=== PATIENT | female | born 1970 | race Caucasian/White ===

== ENCOUNTER 2017-01-02 10:25 | Emergency (ER) | payer BC ==
[2017-01-02] MEDS ORDERED: Sodium Chloride 0.9% 1,000 ML IV ONE ×2 (10:52→12:50)
[2017-01-02] MEDS ORDERED: Ketorolac 30 MG/ML SDV IVPUSH ONE (10:52)
--- NOTE | 2017-01-02 11:18 | EDM.PDOC ---
<Jose Elias Alejandre - Last Filed: 01/02/17 13:54> ED HPI GI/ABDOMINAL - General Chief Complaint: Abdominal Pain Stated Complaint: ABD PAIN Time Seen by Provider: 01/02/17 10:40 Source of Information: Reports: Patient History Limitations: Reports: No limitations - History of Present Illness INITIAL COMMENTS - FREE TEXT/NARRATIVE: History of present illness: [46-year-old female coming in presenting with complaints of acute abdominal pain. Patient was seen Tuesday with her primary care provider who was addressing the same pain and subsequently was worked up on a limited basis with no ability to differentiate or identify what the actual pains Paulette was. Patient is a chronic pain management patient has a contract in place. Dialogue about contract and patient verbalized understanding of plan of care in her and is here for identification of reason for pain.] Review of systems: As per history of present illness and below otherwise all systems reviewed and negative. Past medical history: As per history of present illness and as reviewed below otherwise noncontributory. Surgical history: As per history of present illness and as reviewed below otherwise noncontributory. Social history: No reported history of drug or alcohol abuse. Family history: As per history of present illness and as reviewed below otherwise noncontributory. Physical exam: HEENT: Atraumatic, normocephalic, pupils reactive, negative for conjunctival pallor or scleral icterus, mucous membranes moist, throat clear, neck supple, nontender, trachea midline. Lungs: Clear to auscultation, breath sounds equal bilaterally, chest nontender. Heart: S1S2, regular, negative for clicks, rubs, or JVD. Abdomen: Soft, nondistended, diffuse tenderness left upper quadrant greater than right radiating down into the pelvic region. Negative for masses or hepatosplenomegaly. Negative for costovertebral tenderness. Pelvis: Stable nontender. Genitourinary: Deferred. Rectal: Deferred. Extremities: Atraumatic, negative for cords or calf pain. Neurovascular unremarkable. Neuro: Awake, alert, oriented. Cranial nerves II through XII unremarkable. Cerebellum unremarkable. Motor and sensory unremarkable throughout. Exam nonfocal. Diagnostics: [CBC, CMP] Therapeutics: [IV, Toradol] Impression: [] Plan: [] Definitive disposition and diagnosis as appropriate pending reevaluation and review of above. - Related Data Allergies/ADRs: Allergies Allergy/AdvReac Type Severity Reaction Status Date / Time latex Allergy Rash Verified 01/02/17 10:46 Sulfa (Sulfonamide Allergy Anaphylactic Verified 01/02/17 10:46 Antibiotics) Shock Home Meds: Home Meds Aspirin 81 mg CHEW DAILY 10/12/16 [History] Carisoprodol [Soma] 350 mg PO DAILY PRN 10/12/16 [History] DULoxetine [Cymbalta] 60 mg PO DAILY 10/12/16 [History] Estradiol [Estrace] 2 mg PO DAILY 10/12/16 [History] Gabapentin [Neurontin] 300 mg PO TID 10/12/16 [History] Hydrochlorothiazide 25 mg PO DAILY 10/12/16 [History] Levothyroxine Sodium 150 mcg PO DAILY 10/12/16 [History] Acetaminophen/HYDROcodone [[place] 325-5 MG] 1 tab PO Q4H PRN #30 tablet 10/15/16 [Rx] Meloxicam [Mobic] 15 mg PO DAILY 01/02/17 [History] Ondansetron HCl [Zofran] 8 mg PO TID #24 tablet 01/02/17 [Rx] Past Medical History HEENT History: Reports: None Cardiovascular History: Reports: Hypertension Respiratory History: Reports: None Genitourinary History: Reports: None STRIPER History: Reports: Musculoskeletal History: Reports: Back pain, chronic, Fibromyalgia, Osteoarthritis Other Musculoskeletal History: chronic pain syndrome, Neurological History: Reports: TIA Psychiatric History: Reports: Anxiety, Depression Endocrine/Metabolic History: Reports: Hypothyroidism Other Endocrine/Metabolic History: hx radiation to thyroid Hematologic History: Reports: Blood transfusion(s) Immunologic History: Reports: None Oncologic (Cancer) History: Reports: None Dermatologic History: Reports: None - Infectious Disease History Infectious Disease History: Reports: None - Past Surgical History Head Surgeries/Procedures: Reports: None HEENT Surgical History: Reports: Tonsillectomy Cardiovascular Surgical History: Reports: None GI Surgical History: Reports: Appendectomy, Cholecystectomy Female Surgical History: Reports: Breast implant, Hysterectomy Other Female Surgeries/Procedures: hx breast augmentation, hx laparoscopy with lysis of adhesions Social & Family History - Family History Family Medical History: Noncontributory - Tobacco Use Smoking Status *Q: Current Every Day Smoker Years of Tobacco use: 20 Packs/Tins Daily: 0.3 Month Tobacco Last Used: smokes 1 pack of cigarettes every 3 to 4 days - Caffeine Use Caffeine Use: Reports: None - Recreational Drug Use Recreational Drug Use: No ED ROS GENERAL - Review of Systems Review Of Systems: See Below (The history of present illness) ED EXAM, GI/ABD - Physical Exam Exam: See Below (See history of present illness) Course - Vital Signs Last Recorded V/S: Last Vital Signs Temp 35.6 C 01/02/17 10:43 Pulse 78 01/02/17 10:43 Resp 16 01/02/17 14:08 BP 124/75 01/02/17 14:08 Pulse Ox 97 01/02/17 14:08 - Orders/Labs/Meds Orders: Active Orders 24 hr Category Date Time Status Abdomen Pelvis w Cont [CT] Stat Exams 01/02/17 11:36 Taken Labs: Laboratory Tests 01/02/17 01/02/17 01/02/17 Range/Units 11:05 11:05 11:05 WBC 11.53 H (4.0-11.0) K/uL RBC 4.56 (4.30-5.90) M/uL Hgb 14.4 (12.0-16.0) g/dL Hct 42.5 (36.0-46.0) % MCV 93.2 (80.0-98.0) fL MCH 31.6 (27.0-32.0) pg MCHC 33.9 (31.0-37.0) g/dL RDW Std Deviation 43.7 (28.0-62.0) fl RDW Coeff of Isa 13 (11.0-15.0) % Plt Count 224 (150-400) K/uL MPV 9.40 (7.40-12.00) fL Neut % (Auto) 67.7 (48.0-80.0) % Lymph % (Auto) 26.6 (16.0-40.0) % [place] % (Auto) 4.9 (0.0-15.0) % Eos % (Auto) 0.5 (0.0-7.0) % Baso % (Auto) 0.3 (0.0-1.5) % Neut # 7.8 H (1.4-5.7) K/uL Lymph # 3.1 H (0.6-2.4) K/uL [place] # 0.6 (0.0-0.8) K/uL Eos # 0.1 (0.0-0.7) K/uL Baso # 0.0 (0.0-0.1) K/uL Sodium 141 (136-146) mmol/L Potassium 3.7 (3.5-5.1) mmol/L Chloride 104 (98-110) mmol/L Carbon Dioxide 28 (21-31) mmol/L BUN 10 (6.0-23.0) mg/dL Creatinine 0.8 (0.6-1.5) mg/dL Est Cr Clr Drug Dosing 77.49 mL/min Estimated GFR (MDRD) > 60.0 ml/min Glucose 90 (60-110) mg/dL Calcium 9.4 (8.8-10.8) mg/dL Total Bilirubin 0.5 (0.1-1.5) mg/dL AST 17 (5-40) IU/L ALT 14 (8-54) IU/L Alkaline Phosphatase 59 (40-150) Total Protein 7.1 (6.0-8.0) g/dL Albumin 4.5 (3.5-5.0) g/dL Globulin 2.6 (2.0-3.5) g/dL Albumin/Globulin Ratio 1.7 (1.3-2.8) Amylase 51 (10-90) U/L Lipase 22 (7-80) U/L Meds: Medications Discontinued Medications Generic Name Dose Route Start Last Admin Trade Name Freq PRN Reason Stop Dose Admin Hydromorphone HCl 1 mg 01/02/17 12:50 01/02/17 13:13 Dilaudid IVPUSH 01/02/17 12:51 1 mg ONETIME ONE Administration Sodium Chloride 1,000 mls @ 999 mls/hr 01/02/17 10:52 01/02/17 11:06 Normal Saline IV 01/02/17 11:52 999 mls/hr STAT ONE Administration Sodium Chloride 1,000 mls @ 999 mls/hr 01/02/17 12:50 01/02/17 13:13 Normal Saline IV 01/02/17 13:50 999 mls/hr STAT ONE Administration Iopamidol 100 ml 01/02/17 12:05 01/02/17 12:05 Isovue-370 (76%) IVPUSH 01/02/17 12:06 80 ml ONETIME STA Administration Ketorolac Tromethamine 30 mg 01/02/17 10:52 01/02/17 11:06 Toradol IVPUSH 01/02/17 10:53 30 mg ONETIME ONE Administration Ondansetron HCl 8 mg 01/02/17 12:55 01/02/17 13:13 Zofran IVPUSH 01/02/17 12:56 8 mg ONETIME ONE Administration Departure - Departure Time of Disposition: 13:55 Disposition: Home, Self-Care 01 Condition: good Clinical Impression: Abdominal pain Qualifiers: Abdominal location: unspecified location Qualified Code(s): R10.9 - Unspecified abdominal pain Prescriptions: Ondansetron HCl [Zofran] 8 mg PO TID #24 tablet Instructions: Abdominal Pain, Adult, [id number] Referrals: PCP,None [Primary Care Provider] - Forms: ED Department Discharge Additional Instructions: The following information is given to patients seen in the emergency department who are being discharged to home. This information is to outline your options for follow-up care. We provide all patients seen in our emergency department with a follow-up referral. The need for follow-up, as well as the timing and circumstances, are variable depending upon the specifics of your emergency department visit. If you don't have a primary care physician on staff, we will provide you with a referral. We always advise you to contact your personal physician following an emergency department visit to inform them of the circumstance of the visit and for follow-up with them and/or the need for any referrals to a consulting specialist. The emergency department will also refer you to a specialist when appropriate. This referral assures that you have the opportunity for follow-up care with a specialist. All of these measure are taken in an effort to provide you with optimal care, which includes your follow-up. Under all circumstances we always encourage you to contact your private physician who remains a resource for coordinating your care. When calling for follow-up care, please make the office aware that this follow-up is from your recent emergency room visit. If for any reason you are refused follow-up, please contact the [facility] Emergency Department at and asked to speak to the emergency department charge nurse. Medication as directed Followup with primary care provider one to 2 [facility] Specialty Care - General Surgery Professional Building [address] [place] [address], [address] [place] [address] <Purnima Ansari - Last Filed: 01/02/17 15:41> ED HPI GI/ABDOMINAL - History of Present Illness INITIAL COMMENTS - FREE TEXT/NARRATIVE: Impression: Abdominal pain etiology unclear
[2017-01-02 11:30] LABS: CHLORIDE,CL 104 mmol/L (98-110); SODIUM,NA 141 mmol/L (136-146)
[2017-01-02] MEDS ORDERED: Iopamidol 755 Mg/ML 100 ML Bottle IVPUSH STA (12:05)
[2017-01-02] MEDS ORDERED: HYDROmorphone 2 MG/ML Syringe IVPUSH ONE (12:50)
[2017-01-02] MEDS ORDERED: Ondansetron 4 MG/2 ML SDV IVPUSH ONE (12:55)
[2017-01-02 14:10] VITALS: BP 124/75
--- NOTE | 2017-01-03 16:59 | CT ---
EXAM DATE: 01/02/17 PATIENT'S AGE: 46 Patient: MARY ANN SUH Facility: [place], [place] Site . Site : [id number] Study: CT Abdomen/Pelvis W CONT [id number]/[id number] 12:07:00 PM Ordering Physician: Doctor Dent Final Report: Left-sided abdominal pain. Comparison: None. Technique: CT abdomen and pelvis with intravenous contrast; no oral contrast; coronal and sagittal reformats. Findings: No abnormal intra pulmonary nodular densities through the lung bases. No evidence of pleural effusion. Normal size cardiac silhouette without any evidence of pericardial effusion. Augmentation mammoplasty. Benign cysts in the liver. No focal hepatic or splenic pathology. No pancreatic pathology. Status post cholecystectomy. No adrenal pathology. Symmetric perfusion of both the kidneys without any obstructive uropathy or perinephric pathology. No retroperitoneal lymphadenopathy. No evidence of abdominal or pelvic ascites. Status post appendectomy and hysterectomy. No CT evidence of diverticulitis or abscess. Splenic vein, superior mesenteric vein and the portal vein are unremarkable. Impression: 1. Status post augmentation mammoplasty bilateral. 2. Status post cholecystectomy, appendectomy and hysterectomy. 3. Benign cysts liver. Dictated by Jackie Singh MD @ Jan 02 2017 12:08PM (Electronic Signature) Report Signed by Proxy and Original Signed Document filed in the Medical Record. [employer] [email or web address]
== END 2017-01-02 14:07 | disposition home or self-care (01) ==
LOC: MW.ED 10:25
DX: R10.12 Left upper quadrant pain (principal); R10.11 Right upper quadrant pain; I10 Essential (primary) hypertension; F41.8 Other specified anxiety disorders; E03.9 Hypothyroidism, unspecified; F17.210 Nicotine dependence, cigarettes, uncomplicated; Z88.0 Allergy status to penicillin; Z91.040 Latex allergy status; Z79.82 Long term (current) use of aspirin; Z79.899 Other long term (current) drug therapy; Z86.73 Personal history of transient ischemic attack (TIA), and cerebral infarction without residual deficits; Z90.49 Acquired absence of other specified parts of digestive tract; Z98.890 Other specified postprocedural states; Z90.710 Acquired absence of both cervix and uterus
CPT/HCPCS: 36415; 74177; 80053; 82150; 83690; 85025; 96361; 96374; 96375; 99284; J1170; J1885; J2405; J7040; Q9967

== ENCOUNTER 2022-09-06 06:19 | Day surgery (SDC) | payer BC, OTHER ==
[~2022-09-06 06:19] MED LIST: Lactated Ringers 1,000 ML IV SCH; ceFAZolin 1 GM in Premix Bag 1 BAG IV SCH
[2022-09-06] MEDS ORDERED: fentaNYL 250 MCG/5 ML SDV ONE (07:07)
[2022-09-06] MEDS ORDERED: Propofol 200 MG/20 ML SDV ONE ×2 (07:07→09:20)
[2022-09-06] MEDS ORDERED: Glycopyrrolate 0.2 MG/ML SDV ONE (07:15)
[2022-09-06] MEDS ORDERED: Phenylephrine 1% 10 MG/ML SDV ONE (07:15)
[2022-09-06] MEDS ORDERED: ePHEDrine 50 MG/ML SDV ONE (07:16)
[2022-09-06] MEDS ORDERED: Ropivacaine 0.5% 5 MG/ML 30 ML SDV ONE (07:27)
[2022-09-06] MEDS ORDERED: ceFAZolin 1 GM Vial ONE ×2 (07:30→08:58)
[2022-09-06] MEDS ORDERED: Bupivacaine 0.5% 30 ML SDV ONE (07:30)
[2022-09-06] MEDS ORDERED: Water For Injection, Sterile 40 ML ONE (07:34)
[2022-09-06] MEDS ORDERED: Albuterol 0.083% 2.5 MG/3 ML Neb Soln NEB PRN (07:39)
[2022-09-06] MEDS ORDERED: HYDROmorphone 1 MG/ML Syringe IVPUSH PRN (07:39)
[2022-09-06] MEDS ORDERED: Ondansetron 4 MG/2 ML SDV IVPUSH PRN ×2 (07:39→10:17)
[2022-09-06] MEDS ORDERED: Naloxone 0.4 MG/ML SDV IVPUSH PRN (07:39)
[2022-09-06] MEDS ORDERED: Morphine 2 MG/ML SYRINGE IVPUSH PRN (07:39)
[2022-09-06] MEDS ORDERED: Metoclopramide 10 MG/2 ML SDV IVPUSH PRN (07:39)
[2022-09-06] MEDS ORDERED: Water For Injection, Sterile 20 ML ONE (08:58)
[2022-09-06] MEDS ORDERED: HYDROmorphone 2 MG/ML Syringe ONE (10:09)
[2022-09-06] MEDS ORDERED: Acetaminophen/HYDROcodone 325-5 MG Tab PO PRN ×2 (10:17→12:44)
[2022-09-06] MEDS ORDERED: Morphine 4 MG/ML Syringe IVPUSH PRN (10:17)
[2022-09-06] MEDS ORDERED: Lactated Ringers 1,000 ML IV SCH ×2 (10:30→12:45)
[2022-09-06] MEDS: fentaNYL 50 MCG/ML SDV IVPUSH PRN ×2 (10:35→10:43)
[2022-09-06] MEDS ORDERED: Acetaminophen 325 MG Tab PO PRN (12:44)
[2022-09-06 13:06] VITALS: BP 138/77; PULSE 88
== END 2022-09-07 10:00 | disposition home or self-care (01) ==
LOC: MW.SDS 06:19 → EDSTATUS 08:00 → MW.SDS 09-07 10:00
PROVIDERS: ATTEND Surgery
DX: K40.20 Bilateral inguinal hernia, without obstruction or gangrene, not specified as recurrent (principal); I10 Essential (primary) hypertension; F17.210 Nicotine dependence, cigarettes, uncomplicated; Z90.49 Acquired absence of other specified parts of digestive tract; Z98.890 Other specified postprocedural states; Z79.82 Long term (current) use of aspirin; Z91.040 Latex allergy status; Z86.73 Personal history of transient ischemic attack (TIA), and cerebral infarction without residual deficits; Z01.812 Encounter for preprocedural laboratory examination; Z20.822 Contact with and (suspected) exposure to COVID-19
CPT/HCPCS: 49505; 87635; C1781; J0690; J1170; J2704; J2795; J3010; J3490; J7120; 00830; 64488; J2370; U0002

== ENCOUNTER 2022-09-06 12:44 | Day surgery (SDC) | payer OTHER ==
[2022-09-06] MEDS: Acetaminophen/HYDROcodone 325-5 MG Tab PO PRN ×2 (18:01→22:07)
[2022-09-06] MEDS: Lactated Ringers 1,000 ML IV SCH (18:03)
[2022-09-06] MEDS: Morphine 2 MG/ML SYRINGE IVPUSH PRN ×3 (18:50→23:14)
[2022-09-07] MEDS: Lactated Ringers 1,000 ML IV SCH (01:12)
[2022-09-07] MEDS: Morphine 2 MG/ML SYRINGE IVPUSH PRN ×3 (01:14→07:53)
[2022-09-07] MEDS: Acetaminophen/HYDROcodone 325-5 MG Tab PO PRN ×2 (02:39→09:59)
[2022-09-07 07:43] VITALS: BP 140/86; PULSE 86
== END 2022-09-07 10:00 ==
LOC: MW.SDS 12:44 → MW.MS 12:44 → MW.SDS 09-07 10:00
PROVIDERS: ATTEND Surgery
DX: K40.20 Bilateral inguinal hernia, without obstruction or gangrene, not specified as recurrent (principal); I10 Essential (primary) hypertension; F17.210 Nicotine dependence, cigarettes, uncomplicated; Z90.49 Acquired absence of other specified parts of digestive tract; Z98.890 Other specified postprocedural states; Z79.82 Long term (current) use of aspirin; Z91.040 Latex allergy status; Z86.73 Personal history of transient ischemic attack (TIA), and cerebral infarction without residual deficits; Z01.812 Encounter for preprocedural laboratory examination; Z20.822 Contact with and (suspected) exposure to COVID-19
CPT/HCPCS: 49505; A9270; J2270; J7120

== ENCOUNTER 2023-12-06 08:51 | Day surgery (SDC) | payer OTHER ==
[2023-12-06] MEDS ORDERED: Dexamethasone 4 MG/ML 5 ML MDV ONE (09:04)
[2023-12-06] MEDS ORDERED: Lidocaine 2% 5 ML SDV ONE (09:04)
[2023-12-06] MEDS ORDERED: Bupivacaine 0.5% 10 ML SDV ONE (09:04)
[2023-12-06] MEDS ORDERED: Ketamine 500 mg/10 ML MDV ONE (09:08)
[2023-12-06] MEDS ORDERED: Ketorolac 30 MG/ML SDV ONE (09:08)
[2023-12-06] MEDS ORDERED: Magnesium Sulfate (4.06 MEQ/ML) 5 GM/10 ML SDV ONE (09:10)
[2023-12-06] MEDS: Lactated Ringers 1,000 ML IV SCH (09:12)
[2023-12-06 10:54] VITALS: BP 159/85; PULSE 72
== END 2023-12-06 10:13 | disposition home or self-care (01) ==
LOC: MW.SDS 08:51
PROVIDERS: ATTEND Anesthesiology
DX: R10.30 Lower abdominal pain, unspecified (principal); I10 Essential (primary) hypertension; K21.9 Gastro-esophageal reflux disease without esophagitis; E03.9 Hypothyroidism, unspecified; Z90.49 Acquired absence of other specified parts of digestive tract; Z98.890 Other specified postprocedural states; Z79.82 Long term (current) use of aspirin; Z79.890 Hormone replacement therapy; Z79.899 Other long term (current) drug therapy
CPT/HCPCS: 64425; J0665; J1100; J1885; J3475; J3490; J7120